=== PATIENT | female | born 1980 ===

== ENCOUNTER 2016-07-12 14:55 | Inpatient (IN) | payer OTHER ==
--- NOTE | 2016-07-12 15:30 | ED PDOC ---
HPI: SOB/CHF/COPD Time Seen by Provider: 07/12/16 15:27 Chief Complaint (Nursing): Shortness Of Breath Chief Complaint (Provider): shortness of breath History Per: Patient History/Exam Limitations: no limitations Additional Complaint(s): 35yo female comes the ED complaining of shortness of breath, fever, cough. Past Medical History Reviewed: Historical Data, Nursing Documentation, Vital Signs Vital Signs: Last Vital Signs Temp 99.0 F 07/12/16 15:20 Pulse 84 07/12/16 15:20 Resp 22 07/12/16 15:20 BP 103/54 L 07/12/16 15:20 Pulse Ox 100 07/12/16 15:35 - Medical History PMH: Anemia, Asthma, Gastritis, GERD, Migraine, Rheumatoid Arthritis Denies: Chronic Kidney Disease - Surgical History Surgical History: Cholecystectomy - Family History Family History: States: Unknown Family Hx - Living Arrangements Living Arrangements: With Family - Home Medications Home Medications: Ambulatory Orders Medication Instructions Recorded Albuterol Sulfate [Ventolin Hfa] 2 puff IH Q6H PRN 01/18/14 Mometasone/Formoterol [Dulera 100 1 puff IH BID 01/18/14 Mcg/5 Mcg Inhaler] Montelukast [Singulair] 10 mg PO HS 01/18/14 Albuterol/Ipratropium [Duoneb 3 3 ml IH QID PRN 11/07/14 mg/0.5 mg (3 ml) UD] Azelastine HCl [Astelin] 2 spray MANJIT DAILY 11/07/14 Dm Hydrobrom/Promethazine Hc 10 ml PO Q6H PRN 11/07/14 [Dextromethorphan W/Promethazine 15 mg/5 ml-6] Fluticasone Propionate [Flonase] 2 spray MANJIT DAILY 11/07/14 Gabapentin [Neurontin] 300 mg PO HS 11/07/14 Omeprazole 40 mg PO HS 11/07/14 SUMAtriptan succinate [Imitrex Tab] 100 mg PO PRN PRN 11/07/14 Topiramate [Topamax] 50 mg PO DAILY 11/07/14 Tramadol Hydrochloride [Tramadol] 25 mg PO TID 11/07/14 hydrOXYzine HCl [Atarax] 25 mg PO BID 11/07/14 hydrOXYzine HCl [Atarax] 50 mg PO HS 11/07/14 - Allergies Allergies/Adverse Reactions: Allergies Allergy/AdvReac Type Severity Reaction Status Date / Time Beef Containing Products Allergy ANGIOEDEMA Verified 07/12/16 15:15 fluconazole [From Diflucan] Allergy ITCHING Verified 07/12/16 15:15 hydromorphone HCl Allergy ITCHING Verified 07/12/16 15:15 [From Dilaudid] iron Allergy ANGIOEDEMA Verified 07/12/16 15:15 PORK Allergy ANAPHYLAXIS Verified 01/16/14 16:25 seafood Allergy ANAPHYLAXIS Uncoded 07/12/16 15:15 wine Allergy ANGIOEDEMA Uncoded 07/12/16 15:15 Review of Systems ROS Statement: Except As Marked, All Systems Reviewed And Found Negative Constitutional: Positive for: Fever Respiratory: Positive for: Cough, Shortness of Breath Physical Exam - Reviewed Nursing Documentation Reviewed: Yes Vital Signs Reviewed: Yes - Physical Exam Appears: Positive for: Well, Non-toxic, No Acute Distress Head Exam: Positive for: ATRAUMATIC, NORMAL INSPECTION, NORMOCEPHALIC Skin: Positive for: Normal Color, Warm, Dry Eye Exam: Positive for: EOMI, PERRL Cardiovascular/Chest: Positive for: Regular Rate, Rhythm Respiratory: Positive for: Rhonchi, Wheezing (expiratory). Negative for: Respiratory Distress Extremity: Positive for: Normal ROM Neurologic/Psych: Positive for: Alert, Oriented - Laboratory Results Result Diagrams: 07/12/16 16:00 07/12/16 16:00 - ECG O2 Sat by Pulse Oximetry: 100 Disposition - Clinical Impression Clinical Impression: Asthma, Bronchitis, Influenza, Failure of outpatient treatment - Patient ED Disposition Is Patient to be Admitted: Yes - Disposition Disposition Time: 18:10 Condition: FAIR - Pt Status Changed To: Hospital Disposition Of: Inpatient - Admit Certification Admit to Inpatient:: After my assessment, the patient will require hospitalization for at least two midnights. This is because of the severity of symptoms shown, intensity of services needed, and/or the medical risk in this patient being treated as an outpatient. - POA Present On Arrival: None Additional Comments - Additional Comments Additional Comments: Scribe Attestation: Documented by Markus Brooks acting as a scribe for Emiliano Galeana MD. Provider Scribe Attestation: All medical record entries made by the Scribe were at my direction and personally dictated by me. I have reviewed the chart and agree that the record accurately reflects my personal performance of the history, physical exam, medical decision making, and the department course for this patient. I have also personally directed, reviewed, and agree with the discharge instructions and disposition.
[2016-07-12] MEDS ORDERED: Azithromycin 500 MG in Sodium Chloride 0.9% 250 ML IVPB STA (15:31)
[2016-07-12] MEDS ORDERED: Albuterol-Ipratrop 3 mg / 0.5 (3 ml) UD IH STA (15:31)
[2016-07-12] MEDS ORDERED: cefTRIAXone (Rocephin) 1 gm Inj ONE (15:35)
[2016-07-12] MEDS ORDERED: Albuterol-Ipratrop 3 mg / 0.5 (3 ml) UD ONE (15:35)
[2016-07-12 17:06] LABS: BASO # 0.1 K/uL (0.0-0.2); BASO % 0.7 % (0.0-2.0); EOS % 0.5 % (0.0-4.0); HEMATOCRIT 32.8 % (34.0-47.0); LYMPH # 1.7 K/uL (1.0-4.3); LYMPH % 21.3 % (20.0-40.0); MEAN CORPUSCULAR HEMOGLOBIN 21.7 pg (27.0-31.0); MEAN CORPUSCULAR HGB CONC 31.4 g/dL (33.0-37.0); MEAN PLATELET VOLUME 6.8 fl (7.2-11.7); MONO # 0.9 K/uL (0.0-0.8); MONO % 11.2 % (0.0-10.0); NEUT # 5.4 K/uL (1.8-7.0); NEUT % 66.3 % (50.0-75.0); NRBC % 0.1 % (0.0-0.0); RED CELL DISTRIBUTION WIDTH 20.2 % (11.5-14.5); WHITE BLOOD COUNT 8.1 K/uL (4.8-10.8)
[2016-07-12 17:12] LABS: ALB/GLOB RATIO 1.2 (1.0-2.1); ALKALINE PHOSPHATASE 82 U/L (38-126); ALT/SGPT 32 U/L (9-52); AST/SGOT 30 U/L (14-36); BILIRUBIN,TOTAL 0.2 mg/dl (0.2-1.3); BLOOD UREA NITROGEN 10 mg/dl (7-17); CALCIUM 8.5 mg/dL (8.4-10.2); CARBON DIOXIDE 19 mmol/L (22-30); CHLORIDE 109 mmol/L (98-107); GFR AFRICAN-AMERICAN > 60; GLUCOSE,RANDOM 78 mg/dL (65-105); POTASSIUM 4.1 MMOL/L (3.6-5.0); SODIUM 139 mmol/l (132-148); TOTAL PROTEIN 7.5 G/DL (6.3-8.2)
[2016-07-12 17:13] LABS: VENOUS BLOOD GAS PCO2 51 mmHg (40-60); VENOUS BLOOD PH 7.27 (7.32-7.43)
[2016-07-12] MEDS ORDERED: Sodium Chloride 0.9% 1,000 ML IV STA (17:16)
--- NOTE | 2016-07-12 17:35 | RAD ---
HISTORY: cough COMPARISON: Chest x-ray performed 11/07/14 TECHNIQUE: Chest PA and lateral FINDINGS: Examination limited by habitus. LUNGS: No focal consolidation. Please note that chest x-ray has limited sensitivity for the detection of pulmonary masses. PLEURA: No significant pleural effusion identified. No definite pneumothorax . CARDIOVASCULAR: The cardiomediastinal silhouette appears within normal limits of size. OSSEOUS STRUCTURES: No acute osseous abnormality identified. VISUALIZED UPPER ABDOMEN: Unremarkable. OTHER FINDINGS: None. IMPRESSION: No focal consolidation, significant pleural effusion, or definite pneumothorax identified.
[2016-07-12 20:51] LABS: VENOUS BLOOD GAS BASE EXCESS -6.2 mmol/L (0.0-2.0); VENOUS BLOOD GAS PCO2 31 mmHg (40-60); VENOUS BLOOD PH 7.37 (7.32-7.43)
[2016-07-12] MEDS: Dextrose 5%/0.45% NS 1,000 ML IV SCH (22:37)
[2016-07-13] MEDS: methylPREDNISolone 60 MG in Sodium Chloride 0.9% 50 ML IV SCH ×3 (00:26→17:33)
[2016-07-13] MEDS: Promethazine/Cod 6.25mg-10mg/5ml Syr UD PO PRN ×3 (00:31→21:36)
[2016-07-13] MEDS: Albuterol-Ipratrop 3 mg / 0.5 (3 ml) UD INH SCH ×4 (01:00→19:55)
--- NOTE | 2016-07-13 07:16 | CARD ---
APPROVED REPORT EKG Measurement Heart [id number] <Conclusion> Normal sinus rhythm Normal ECG
[2016-07-13] MEDS ORDERED: cefTRIAXone 1,000 MG in Sterile Water for Inj 10 ML 25 ML IVPB SCH (09:00)
[2016-07-13] MEDS: Pantoprazole 40 mg EC Tab PO SCH (09:01)
[2016-07-13] MEDS: Dextrose 5%/0.45% NS 1,000 ML IV SCH (11:04)
--- NOTE | 2016-07-13 12:11 | HP ---
The patient is a 35-year-old female who was admitted via the Emergency Room because of progressively worsening shortness of breath and exercise intolerance for the past several weeks prior to presentati on. She was seen in the office originally, worked up and treated for acute exacerbation of asthma, b ut symptoms however worsened despite outpatient therapy. She was considered a treatment failure and sent to the Emergency Room for workup and therapy where she was admitted for acute asthma and the flu . PAST MEDICAL HISTORY: Remarkable for asthma, anxiety disorder, multiple allergies and urticaria. FAMILY HISTORY: Remarkable for mother who has hypertension and COPD with arthritis. SOCIAL HISTORY: Does not smoke, does not drink and lives at home with the mother. REVIEW OF SYSTEMS: Remarkable for recurrent shortness of breath, exercise intolerance and cough. PHYSICAL EXAMINATION: GENERAL: The patient is alert and oriented. VITAL SIGNS: Blood pressure 95/51, pulse of 95, respiratory rate 20. She is afebrile. O2 sat 96% o n room air. SKIN: Shows fair turgor. HEENT: Pupils equal, react to light and accommodation. Mouth shows mucus engorgement of pharynx. NECK: JVP flat. LUNGS: Poor aeration bilaterally with audible wheezing and rales. BREASTS: Normal. ABDOMEN: Soft, nontender, no organomegaly. EXTREMITIES: Shows no edema or cyanosis. RECTAL AND GENITALIA: Deferred. CENTRAL NERVOUS SYSTEM: Essentially unremarkable. LABORATORY DATA: WBC 8.1, hemoglobin 10.3, platelet count of 313,000. Sodium 139, potassium 4.1, BU N of 10, creatinine 0.7. Venous blood gas is remarkable for pH of 7.27, pO2 of 27, pCO2 of 51. Ches t x-ray shows no acute cardiopulmonary pathology. IMPRESSION: Acute asthma exacerbated by the flu, history of anxiety disorder, history of urticaria w ith multiple allergies. PLAN: Intravenous steroids, aerosolized bronchodilators, droplet precautions, Tamiflu given by mouth , IV antibiotics. Sputum will be sent for cultures. Blood cultures already ordered. Further therap y will depend on findings. Alessandro Whelan MD cc: 62 TT: 07/13/2016 12:10:18 sn
[2016-07-14] MEDS: methylPREDNISolone 60 MG in Sodium Chloride 0.9% 50 ML IV SCH ×3 (00:01→16:43)
[2016-07-14] MEDS: Albuterol-Ipratrop 3 mg / 0.5 (3 ml) UD INH SCH ×4 (01:12→19:28)
--- NOTE | 2016-07-14 08:33 | CP.PCM.PN ---
Subjective - Date & Time of Evaluation Date of Evaluation: 07/14/16 Time of Evaluation: 08:33 - Subjective Subjective: still coughing and wheezing has severe throat irritation and chest discomfort on coughing Objective - Vital Signs/Intake and Output Vital Signs (last 24 hours): Temp Pulse Resp BP Pulse Ox 98.1 F 71 18 111/75 99 07/14/16 07:55 07/14/16 07:55 07/14/16 07:55 07/14/16 07:55 07/14/16 07:55 - Medications Medications: Current Medications Acetaminophen (Tylenol 325mg Tab) 650 mg PO Q4 PRN PRN Reason: Fever >100.4 F Albuterol/Ipratropium (Duoneb 3 Mg/0.5 Mg (3 Ml) Ud) 3 ml INH RQ6 [facility] Last Admin: 07/14/16 07:33 Dose: 3 ml Gabapentin (Neurontin) 300 mg PO HS [facility] Last Admin: 07/13/16 21:37 Dose: 300 mg Hydroxyzine HCl (Atarax) 25 mg PO BID [facility] Last Admin: 07/13/16 16:16 Dose: 25 mg Hydroxyzine HCl (Atarax) 50 mg PO HS [facility] Last Admin: 07/13/16 21:37 Dose: 50 mg Methylprednisolone 60 mg/ (Sodium Chloride) 50 mls @ 100 mls/hr IV Q8 [facility] Last Admin: 07/14/16 00:01 Dose: 100 mls/hr Ceftriaxone Sodium 1 gm/ (Sodium Chloride) 100 mls @ 100 mls/hr IVPB DAILY [facility] Last Admin: 07/13/16 09:02 Dose: 100 mls/hr Montelukast Sodium (Singulair) 10 mg PO HS [facility] Last Admin: 07/13/16 21:37 Dose: 10 mg Oseltamivir Phosphate (Tamiflu Cap) 75 mg PO BID [facility] Last Admin: 07/13/16 16:16 Dose: 75 mg Pantoprazole Sodium (Protonix Ec Tab) 40 mg PO DAILY [facility] Last Admin: 07/13/16 09:01 Dose: 40 mg Promethazine HCl/Codeine (Phenergan/Codeine Oral Syrup) 5 ml PO Q6 PRN PRN Reason: Cough Last Admin: 07/13/16 21:36 Dose: 5 ml Topiramate (Topamax) 50 mg PO DAILY [facility] Last Admin: 07/13/16 08:28 Dose: 50 mg - Labs Labs: 07/12/16 16:00 07/12/16 16:00 - Constitutional Appears: In Acute Distress - Head Exam Head Exam: ATRAUMATIC, NORMAL INSPECTION, NORMOCEPHALIC - Eye Exam Eye Exam: EOMI, Normal appearance, PERRL Pupil Exam: NORMAL ACCOMODATION, PERRL - ENT Exam ENT Exam: Mucous Membranes Moist, Normal Exam - Neck Exam Neck Exam: Full ROM, Normal Inspection. absent: Lymphadenopathy - Respiratory Exam Respiratory Exam: Decreased Breath Sounds, Prolonged Expiratory Phase, Rales, Wheezes, NORMAL BREATHING PATTERN - Cardiovascular Exam Cardiovascular Exam: REGULAR RHYTHM, +S1, +S2. absent: Murmur - GI/Abdominal Exam GI & Abdominal Exam: Soft, Normal Bowel Sounds. absent: Tenderness - Rectal Exam Rectal Exam: NORMAL INSPECTION - Extremities Exam Extremities Exam: Full ROM, Normal Capillary Refill, Normal Inspection. absent : Joint Swelling, Pedal Edema - Back Exam Back Exam: NORMAL INSPECTION - Neurological Exam Neurological Exam: Alert, Awake, CN II-XII Intact, Normal Gait, Oriented x3 - Psychiatric Exam Psychiatric exam: Normal Affect, Normal Mood - Skin Skin Exam: Dry, Intact, Normal Color, Warm Assessment and Plan - Assessment and Plan (Free Text) Assessment: acute exac of asthma uri flu chronic anemia Plan: see orders
[2016-07-14] MEDS: Pantoprazole 40 mg EC Tab PO SCH (08:36)
[2016-07-14] MEDS: Promethazine/Cod 6.25mg-10mg/5ml Syr UD PO PRN (10:21)
[2016-07-14] MEDS: Mag&Al/Simet/Diphen/Lido 237 ML KIT PO SCH ×3 (10:30→16:17)
[2016-07-14] MEDS: Acetylcysteine 20% Inhal Soln (4ml) INH SCH (19:28)
[2016-07-15] MEDS: methylPREDNISolone 60 MG in Sodium Chloride 0.9% 50 ML IV SCH ×3 (00:14→17:32)
[2016-07-15] MEDS: Promethazine/Cod 6.25mg-10mg/5ml Syr UD PO PRN ×2 (00:15→18:01)
[2016-07-15] MEDS: Albuterol-Ipratrop 3 mg / 0.5 (3 ml) UD INH SCH ×4 (01:03→20:06)
[2016-07-15 07:17] LABS: BLOOD UREA NITROGEN 10 mg/dl (7-17); CALCIUM 9.3 mg/dL (8.4-10.2); CARBON DIOXIDE 21 mmol/L (22-30); CHLORIDE 110 mmol/L (98-107); GFR AFRICAN-AMERICAN > 60; GLUCOSE,RANDOM 120 mg/dL (65-105); POTASSIUM 4.7 MMOL/L (3.6-5.0); SODIUM 140 mmol/l (132-148)
[2016-07-15] MEDS: Acetylcysteine 20% Inhal Soln (4ml) INH SCH ×2 (07:44→20:06)
[2016-07-15 07:53] LABS: BASO % 0.1 % (0.0-2.0); HEMATOCRIT 33.6 % (34.0-47.0); LYMPH # 1.6 K/uL (1.0-4.3); LYMPH % 7.7 % (20.0-40.0); MEAN CELL VOLUME 68.4 fl (81.0-99.0); MEAN CORPUSCULAR HEMOGLOBIN 21.2 pg (27.0-31.0); MEAN CORPUSCULAR HGB CONC 30.9 g/dL (33.0-37.0); MEAN PLATELET VOLUME 7.4 fl (7.2-11.7); MONO # 0.7 K/uL (0.0-0.8); MONO % 3.6 % (0.0-10.0); NEUT # 18.2 K/uL (1.8-7.0); NEUT % 88.6 % (50.0-75.0); PLATELET COUNT 386 K/uL (130-400); RED CELL DISTRIBUTION WIDTH 20.2 % (11.5-14.5); WHITE BLOOD COUNT 20.6 K/uL (4.8-10.8)
[2016-07-15 08:56] LABS: NEUTROPHIL 88 % (42-75); TOTAL CELLS COUNTED 100
[2016-07-15] MEDS: Mag&Al/Simet/Diphen/Lido 237 ML KIT PO SCH ×3 (08:58→17:33)
[2016-07-15] MEDS: Pantoprazole 40 mg EC Tab PO SCH (08:59)
[2016-07-15 09:00] LABS: LARGE PLATELETS PRESENT
--- NOTE | 2016-07-15 09:25 | CP.PCM.PN ---
Subjective - Date & Time of Evaluation Date of Evaluation: 07/15/16 Time of Evaluation: 09:25 - Subjective Subjective: STILL COUGHING AND DYSPNEIC AT REST Objective - Vital Signs/Intake and Output Vital Signs (last 24 hours): Temp Pulse Resp BP Pulse Ox 99.1 F 75 20 117/76 97 07/15/16 08:22 07/15/16 08:22 07/15/16 08:22 07/15/16 08:22 07/15/16 08:22 - Medications Medications: Current Medications Acetaminophen (Tylenol 325mg Tab) 650 mg PO Q4 PRN PRN Reason: Fever >100.4 F Acetylcysteine (Acetylcysteine 20%) 2 ml INH RBID [facility] Last Admin: 07/15/16 07:44 Dose: 2 ml Albuterol/Ipratropium (Duoneb 3 Mg/0.5 Mg (3 Ml) Ud) 3 ml INH RQ6 [facility] Last Admin: 07/15/16 07:44 Dose: 3 ml Gabapentin (Neurontin) 300 mg PO HS [facility] Last Admin: 07/15/16 00:15 Dose: 300 mg Hydroxyzine HCl (Atarax) 25 mg PO BID [facility] Last Admin: 07/15/16 08:59 Dose: 25 mg Hydroxyzine HCl (Atarax) 50 mg PO HS [facility] Last Admin: 07/15/16 00:15 Dose: 50 mg Methylprednisolone 60 mg/ (Sodium Chloride) 50 mls @ 100 mls/hr IV Q8 [facility] Last Admin: 07/15/16 00:14 Dose: 100 mls/hr Ceftriaxone Sodium 1 gm/ (Sodium Chloride) 100 mls @ 100 mls/hr IVPB DAILY [facility] Last Admin: 07/15/16 08:59 Dose: 100 mls/hr Montelukast Sodium (Singulair) 10 mg PO HS [facility] Last Admin: 07/15/16 00:15 Dose: 10 mg Oseltamivir Phosphate (Tamiflu Cap) 75 mg PO BID [facility] Last Admin: 07/15/16 08:59 Dose: 75 mg Pantoprazole Sodium (Protonix Ec Tab) 40 mg PO DAILY [facility] Last Admin: 07/15/16 08:59 Dose: 40 mg Promethazine HCl/Codeine (Phenergan/Codeine Oral Syrup) 5 ml PO Q6 PRN PRN Reason: Cough Last Admin: 07/15/16 00:15 Dose: 5 ml Saliva Substitute (First Magic Mouthwash) 10 ml PO TID [facility] Last Admin: 07/15/16 08:58 Dose: 10 ml Topiramate (Topamax) 50 mg PO DAILY [facility] Last Admin: 07/15/16 08:59 Dose: 50 mg - Labs Labs: 07/15/16 06:15 07/15/16 06:15 - Constitutional Appears: In Acute Distress - Head Exam Head Exam: ATRAUMATIC, NORMAL INSPECTION, NORMOCEPHALIC - Eye Exam Eye Exam: EOMI, Normal appearance, PERRL Pupil Exam: NORMAL ACCOMODATION, PERRL - ENT Exam ENT Exam: Mucous Membranes Moist, Normal Exam - Neck Exam Neck Exam: Full ROM, Normal Inspection. absent: Lymphadenopathy - Respiratory Exam Respiratory Exam: Decreased Breath Sounds, Prolonged Expiratory Phase, Rales, Wheezes, NORMAL BREATHING PATTERN - Cardiovascular Exam Cardiovascular Exam: REGULAR RHYTHM, +S1, +S2. absent: Murmur - GI/Abdominal Exam GI & Abdominal Exam: Soft, Normal Bowel Sounds. absent: Tenderness - Rectal Exam Rectal Exam: NORMAL INSPECTION - Extremities Exam Extremities Exam: Full ROM, Normal Capillary Refill, Normal Inspection. absent : Joint Swelling, Pedal Edema - Back Exam Back Exam: NORMAL INSPECTION - Neurological Exam Neurological Exam: Alert, Awake, CN II-XII Intact, Normal Gait, Oriented x3 - Psychiatric Exam Psychiatric exam: Normal Affect, Normal Mood - Skin Skin Exam: Dry, Intact, Normal Color, Warm Assessment and Plan - Assessment and Plan (Free Text) Assessment: ACUTE EXAC OF ASTHMA FLU Plan: CONTINUE PRESENT RX
[2016-07-16] MEDS: Albuterol-Ipratrop 3 mg / 0.5 (3 ml) UD INH SCH ×4 (01:01→20:41)
[2016-07-16] MEDS: methylPREDNISolone 60 MG in Sodium Chloride 0.9% 50 ML IV SCH ×2 (02:00→10:01)
[2016-07-16] MEDS: Acetylcysteine 20% Inhal Soln (4ml) INH SCH ×2 (07:19→20:41)
[2016-07-16] MEDS: Pantoprazole 40 mg EC Tab PO SCH (09:58)
[2016-07-16] MEDS: Mag&Al/Simet/Diphen/Lido 237 ML KIT PO SCH ×3 (09:58→16:57)
--- NOTE | 2016-07-16 14:16 | CP.PCM.PN ---
Subjective - Date & Time of Evaluation Date of Evaluation: 07/16/16 Time of Evaluation: 14:16 - Subjective Subjective: SLIGHT IMPROVEMENT OF COUGH AND SOB Objective - Vital Signs/Intake and Output Vital Signs (last 24 hours): Temp Pulse Resp BP Pulse Ox 98 F 92 H 20 120/73 98 07/16/16 03:38 07/15/16 21:50 07/15/16 21:50 07/15/16 21:50 07/15/16 21:50 - Medications Medications: Current Medications Acetaminophen (Tylenol 325mg Tab) 650 mg PO Q4 PRN PRN Reason: Fever >100.4 F Acetylcysteine (Acetylcysteine 20%) 2 ml INH RBID [facility] Last Admin: 07/16/16 07:19 Dose: 2 ml Albuterol/Ipratropium (Duoneb 3 Mg/0.5 Mg (3 Ml) Ud) 3 ml INH RQ6 [facility] Last Admin: 07/16/16 13:12 Dose: 3 ml Gabapentin (Neurontin) 300 mg PO HS [facility] Last Admin: 07/15/16 22:18 Dose: 300 mg Hydroxyzine HCl (Atarax) 25 mg PO BID [facility] Last Admin: 07/15/16 17:33 Dose: 25 mg Hydroxyzine HCl (Atarax) 50 mg PO HS [facility] Last Admin: 07/15/16 22:18 Dose: 50 mg Methylprednisolone 60 mg/ (Sodium Chloride) 50 mls @ 100 mls/hr IV Q8 [facility] Last Admin: 07/16/16 10:01 Dose: 100 mls/hr Ceftriaxone Sodium 1 gm/ (Sodium Chloride) 100 mls @ 100 mls/hr IVPB DAILY [facility] Last Admin: 07/16/16 09:59 Dose: 100 mls/hr Montelukast Sodium (Singulair) 10 mg PO HS [facility] Last Admin: 07/15/16 22:18 Dose: 10 mg Oseltamivir Phosphate (Tamiflu Cap) 75 mg PO BID [facility] Last Admin: 07/16/16 10:01 Dose: 75 mg Pantoprazole Sodium (Protonix Ec Tab) 40 mg PO DAILY [facility] Last Admin: 07/16/16 09:58 Dose: 40 mg Promethazine HCl/Codeine (Phenergan/Codeine Oral Syrup) 5 ml PO Q6 PRN PRN Reason: Cough Last Admin: 07/15/16 18:01 Dose: 5 ml Saliva Substitute (First Magic Mouthwash) 10 ml PO TID [facility] Last Admin: 07/16/16 09:58 Dose: 10 ml Topiramate (Topamax) 50 mg PO DAILY [facility] Last Admin: 07/16/16 10:02 Dose: 50 mg - Labs Labs: 07/15/16 06:15 07/15/16 06:15 - Constitutional Appears: No Acute Distress - Head Exam Head Exam: ATRAUMATIC, NORMAL INSPECTION, NORMOCEPHALIC - Eye Exam Eye Exam: EOMI, Normal appearance, PERRL Pupil Exam: NORMAL ACCOMODATION, PERRL - ENT Exam ENT Exam: Mucous Membranes Moist, Normal Exam - Neck Exam Neck Exam: Full ROM, Normal Inspection. absent: Lymphadenopathy - Respiratory Exam Respiratory Exam: Decreased Breath Sounds, Rales, Wheezes, NORMAL BREATHING PATTERN - Cardiovascular Exam Cardiovascular Exam: REGULAR RHYTHM, +S1, +S2. absent: Murmur - GI/Abdominal Exam GI & Abdominal Exam: Soft, Normal Bowel Sounds. absent: Tenderness - Rectal Exam Rectal Exam: NORMAL INSPECTION - Extremities Exam Extremities Exam: Full ROM, Normal Capillary Refill, Normal Inspection. absent : Joint Swelling, Pedal Edema - Back Exam Back Exam: NORMAL INSPECTION - Neurological Exam Neurological Exam: Alert, Awake, CN II-XII Intact, Normal Gait, Oriented x3 - Psychiatric Exam Psychiatric exam: Normal Affect, Normal Mood - Skin Skin Exam: Dry, Intact, Normal Color, Warm Assessment and Plan - Assessment and Plan (Free Text) Assessment: ACUTE ASTHMA URI FLU Plan: TAPER STEROIDS D/C IN AM IF STABLE
[2016-07-16] MEDS: Promethazine/Cod 6.25mg-10mg/5ml Syr UD PO PRN (21:59)
[2016-07-16] MEDS: methylPREDNISolone 40 MG in Sodium Chloride 0.9% 50 ML IV SCH (22:34)
[2016-07-17] MEDS: Albuterol-Ipratrop 3 mg / 0.5 (3 ml) UD INH SCH ×2 (01:06→07:20)
[2016-07-17] MEDS: Acetylcysteine 20% Inhal Soln (4ml) INH SCH (07:21)
[2016-07-17 08:40] VITALS: BP 103/68; PULSE 78; RESP 20; TEMP 98.7; O2SAT 97
--- NOTE | 2016-07-17 08:48 | CP.PCM.DIS ---
Provider - Provider Date of Admission: 07/12/16 15:32 Attending physician: Alessandro Whelan MD Primary care physician: Alessandro Whelan MD Time Spent in preparation of Discharge (in minutes): 30 Diagnosis - Discharge Diagnosis (1) Asthma Status: Acute (2) Failure of outpatient treatment Status: Acute (3) Influenza Status: Acute (4) Asthma exacerbation Status: Acute Hospital Course - Lab Results Lab Results: Micro Results 07/12/16 16:00 Blood Blood Culture - Preliminary NO GROWTH AFTER 4 DAYS 07/13/16 09:48 Sputum Gram Stain - Final 07/13/16 09:48 Sputum Sputum Culture - Final NORMAL ORAL RAFAEL Most Recent Lab Values WBC 20.6 K/uL (4.8-10.8) H D 07/15/16 06:15 RBC 4.91 Mil/uL (3.80-5.20) 07/15/16 06:15 Hgb 10.4 g/dL (12.0-16.0) L 07/15/16 06:15 Hct 33.6 % (34.0-47.0) L 07/15/16 06:15 MCV 68.4 fl (81.0-99.0) L 07/15/16 06:15 MCH 21.2 pg (27.0-31.0) L 07/15/16 06:15 MCHC 30.9 g/dL (33.0-37.0) L 07/15/16 06:15 RDW 20.2 % (11.5-14.5) H 07/15/16 06:15 Plt Count 386 K/uL (130-400) 07/15/16 06:15 MPV 7.4 fl (7.2-11.7) 07/15/16 06:15 Neut % (Auto) 88.6 % (50.0-75.0) H 07/15/16 06:15 Lymph % (Auto) 7.7 % (20.0-40.0) L 07/15/16 06:15 [place] % (Auto) 3.6 % (0.0-10.0) 07/15/16 06:15 Eos % (Auto) 0.0 % (0.0-4.0) 07/15/16 06:15 Baso % (Auto) 0.1 % (0.0-2.0) 07/15/16 06:15 Neut # 18.2 K/uL (1.8-7.0) H 07/15/16 06:15 Lymph # 1.6 K/uL (1.0-4.3) 07/15/16 06:15 [place] # 0.7 K/uL (0.0-0.8) 07/15/16 06:15 Eos # 0.0 K/uL (0.0-0.7) 07/15/16 06:15 Baso # 0.0 K/uL (0.0-0.2) 07/15/16 06:15 Neutrophils % (Manual) 88 % (42-75) H 07/15/16 06:15 Band Neutrophils % 1 % (0-2) 07/15/16 06:15 Lymphocytes % (Manual) 10 % (20-50) L 07/15/16 06:15 Monocytes % (Manual) 1 % (0-10) 07/15/16 06:15 Toxic Granulation Present 07/15/16 06:15 Platelet Estimate Normal (NORMAL) 07/15/16 06:15 Large Platelets Present 07/15/16 06:15 Hypochromasia (manual) Slight 07/15/16 06:15 Poikilocytosis (manual Slight 07/15/16 06:15 Anisocytosis (manual) Moderate 07/15/16 06:15 Microcytosis (manual) Moderate 07/15/16 06:15 Ovalocytes Slight 07/15/16 06:15 pO2 65 mm/Hg (30-55) H 07/12/16 20:45 VBG pH 7.37 (7.32-7.43) 07/12/16 20:45 VBG pCO2 31 mmHg (40-60) L 07/12/16 20:45 VBG HCO3 19.9 mmol/L 07/12/16 20:45 VBG Total CO2 18.9 mmol/L (22-28) L 07/12/16 20:45 VBG O2 Sat (Calc) 96.8 % (40-65) H 07/12/16 20:45 VBG Base Excess -6.2 mmol/L (0.0-2.0) L 07/12/16 20:45 VBG Potassium 4.0 mmol/L (3.6-5.2) 07/12/16 20:45 Sodium 140.0 mmol/L (132-148) 07/12/16 20:45 Chloride 117.0 mmol/L (98-107) H 07/12/16 20:45 Glucose 141 mg/dL (65-105) H 07/12/16 20:45 Lactate 1.1 mmol/L (0.7-2.1) 07/12/16 20:45 FiO2 21.0 % 07/12/16 20:45 Sodium 140 mmol/l (132-148) 07/15/16 06:15 Potassium 4.7 MMOL/L (3.6-5.0) 07/15/16 06:15 Chloride 110 mmol/L (98-107) H 07/15/16 06:15 Carbon Dioxide 21 mmol/L (22-30) L 07/15/16 06:15 Anion Gap 14 (10-20) 07/15/16 06:15 BUN 10 mg/dl (7-17) 07/15/16 06:15 Creatinine 0.7 mg/dL (0.7-1.2) 07/15/16 06:15 Est GFR ( Amer) > 60 07/15/16 06:15 Est GFR (Non-Af Amer) > 60 07/15/16 06:15 Random Glucose 120 mg/dL (65-105) H 07/15/16 06:15 Calcium 9.3 mg/dL (8.4-10.2) 07/15/16 06:15 Total Bilirubin 0.2 mg/dl (0.2-1.3) 07/12/16 16:00 AST 30 U/L (14-36) 07/12/16 16:00 ALT 32 U/L (9-52) 07/12/16 16:00 Alkaline Phosphatase 82 U/L (38-126) 07/12/16 16:00 Total Protein 7.5 G/DL (6.3-8.2) 07/12/16 16:00 Albumin 4.0 g/dL (3.5-5.0) 07/12/16 16:00 Globulin 3.4 gm/dL (2.2-3.9) 07/12/16 16:00 Albumin/Globulin Ratio 1.2 (1.0-2.1) 07/12/16 16:00 Venous Blood Potassium 4.0 mmol/L (3.6-5.2) 07/12/16 20:45 Influenza Typ A,B (EIA) Pos for influenza b (NEGATIVE) H 07/12/16 17:30 - Hospital Course Hospital Course: cough less no chest pains Discharge Exam - Head Exam Head Exam: ATRAUMATIC, NORMAL INSPECTION, NORMOCEPHALIC - Eye Exam Eye Exam: EOMI, Normal appearance, PERRL Pupil Exam: NORMAL ACCOMODATION, PERRL - Respiratory Exam Respiratory Exam: Wheezes Additional comments: mild wheezing - GI/Abdominal Exam GI & Abdominal Exam: Normal Bowel Sounds - Rectal Exam Rectal Exam: NORMAL INSPECTION - Neurological Exam Neurological exam: Alert, CN II-XII Intact, Normal Gait, Oriented x3, Reflexes Normal - Psychiatric Exam Psychiatric exam: Normal Affect, Normal Mood - Skin Skin Exam: Dry, Intact, Normal Color, Warm Discharge Plan - Follow Up Plan Condition: FAIR Disposition: HOME/ ROUTINE Patient education suggested?: Yes Additional Instructions: d/c home today Referrals: Alessandro Whelan MD [Primary Care Provider] -
[2016-07-17] MEDS: Mag&Al/Simet/Diphen/Lido 237 ML KIT PO SCH (09:09)
[2016-07-17] MEDS: Pantoprazole 40 mg EC Tab PO SCH (09:09)
[2016-07-17] MEDS: methylPREDNISolone 40 MG in Sodium Chloride 0.9% 50 ML IV SCH (09:10)
== END 2016-07-17 11:50 | disposition home or self-care (01) | DRG 68 ==
LOC: H.ER 14:55 → H.ERHOLD 15:32 → H.MEDSURG1 20:34
PROVIDERS: ADMIT Internal Medicine Pulmonary Disease; ATTEND Internal Medicine Pulmonary Disease
PROC: 3E0F7GC Introduction of Other Therapeutic Substance into Respiratory Tract, Via Natural or Artificial Opening (ICD-10-PCS; principal; 2016-07-13)
DX: J10.1 Influenza due to other identified influenza virus with other respiratory manifestations (principal); J45.901 Unspecified asthma with (acute) exacerbation; D64.9 Anemia, unspecified; F41.9 Anxiety disorder, unspecified; Z91.048 Other nonmedicinal substance allergy status; Z88.8 Allergy status to other drugs, medicaments and biological substances

== ENCOUNTER 2016-09-04 00:47 | Emergency (ER) | payer OTHER ==
[2016-09-04 01:14] VITALS: BP 153/73; PULSE 89; RESP 16; TEMP 97.9; O2SAT 100
--- NOTE | 2016-09-04 03:20 | ED PDOC ---
Lower Extremity Pain/Injury Time Seen by Provider: 09/04/16 01:07 Chief Complaint (Nursing): Lower Extremity Problem/Injury Chief Complaint (Provider): Left ankle pain History Per: Patient History/Exam Limitations: no limitations Onset/Duration Of Symptoms: Hrs Current Symptoms Are (Timing): Still Present Severity: Moderate Pain Scale Rating Of: 6 Additional Complaint(s): Pt states twice during the day she twisted her ankle. Pt states after she was able to walk after but had worsening pain when she got home. Pt states she noticed swelling so she iced the area. PT states the pain is worse and now she cannot put pressure on ankle to walk. Past Medical History Reviewed: Historical Data, Nursing Documentation, Vital Signs Vital Signs: Last Vital Signs Temp 97.9 F 09/04/16 01:09 Pulse 89 09/04/16 01:09 Resp 16 09/04/16 01:09 BP 153/73 H 09/04/16 01:09 Pulse Ox 100 09/04/16 01:09 - Medical History PMH: Anemia, Asthma, Gastritis, GERD, Migraine, Rheumatoid Arthritis Denies: Chronic Kidney Disease - Surgical History Surgical History: Cholecystectomy (2008) - Family History Family History: States: Unknown Family Hx - Living Arrangements Living Arrangements: With Family - Social History Current smoker - smoking cessation education provided: No - Home Medications Home Medications: Ambulatory Orders Medication Instructions Recorded Albuterol Sulfate [Ventolin Hfa] 2 puff IH Q6H PRN 01/18/14 Mometasone/Formoterol [Dulera 100 1 puff IH BID 01/18/14 Mcg/5 Mcg Inhaler] Montelukast [Singulair] 10 mg PO HS 01/18/14 Albuterol/Ipratropium [Duoneb 3 3 ml IH QID PRN 11/07/14 mg/0.5 mg (3 ml) UD] Dm Hydrobrom/Promethazine Hc 10 ml PO Q6H PRN 11/07/14 [Dextromethorphan W/Promethazine 15 mg/5 ml-6] Fluticasone Propionate [Flonase] 2 spray MANJIT DAILY 11/07/14 Gabapentin [Neurontin] 300 mg PO HS 11/07/14 Omeprazole 40 mg PO HS 11/07/14 SUMAtriptan succinate [Imitrex Tab] 100 mg PO PRN PRN 11/07/14 Topiramate [Topamax] 50 mg PO DAILY 11/07/14 Tramadol Hydrochloride [Tramadol] 25 mg PO TID 11/07/14 hydrOXYzine HCl [Atarax] 25 mg PO BID 11/07/14 hydrOXYzine HCl [Atarax] 50 mg PO HS 11/07/14 levoFLOXacin [Levaquin] 500 mg PO DAILY #7 tab 07/17/16 traMADol [Ultram] 50 mg PO Q6H PRN #10 tab 09/04/16 - Allergies Allergies/Adverse Reactions: Allergies Allergy/AdvReac Type Severity Reaction Status Date / Time Beef Containing Products Allergy ANGIOEDEMA Verified 07/12/16 15:15 fluconazole [From Diflucan] Allergy ITCHING Verified 07/12/16 15:15 hydromorphone HCl Allergy ITCHING Verified 07/12/16 15:15 [From Dilaudid] iron Allergy ANGIOEDEMA Verified 07/12/16 15:15 PORK Allergy ANAPHYLAXIS Verified 01/16/14 16:25 seafood Allergy ANAPHYLAXIS Uncoded 07/12/16 15:15 wine Allergy ANGIOEDEMA Uncoded 07/12/16 15:15 - ECG O2 Sat by Pulse Oximetry: 100 Medical Decision Making Medical Decision Making: x-ray without fracture, reviewed by Dr. Mcneal podiatry resident. Disposition - Clinical Impression Clinical Impression: Ankle sprain - Patient ED Disposition Is Patient to be Admitted: No Counseled Patient/Family Regarding: Diagnosis, Need For Followup, Rx Given - Disposition Referrals: [facility] [Outside] [facility] [Outside] Disposition: Routine/Home Disposition Time: 04:03 Condition: GOOD Prescriptions: traMADol [Ultram] 50 mg PO Q6H PRN #10 tab PRN Reason: Pain Instructions: Ankle Sprain (ED)
--- NOTE | 2016-09-04 11:04 | RAD ---
HISTORY: pain, twisted ankle twice COMPARISON: No prior FINDINGS: BONES: Normal. No fracture. JOINTS: Normal. No osteoarthritis. SOFT TISSUE: Normal. OTHER FINDINGS: None . IMPRESSION: Normal Bone Xray.
== END 2016-09-04 04:42 | disposition home or self-care (01) ==
LOC: H.ER 00:47
DX: S93.402A Sprain of unspecified ligament of left ankle, initial encounter (principal); X50.9XXA Other and unspecified overexertion or strenuous movements or postures, initial encounter; Y92.89 Other specified places as the place of occurrence of the external cause; J45.909 Unspecified asthma, uncomplicated; K21.9 Gastro-esophageal reflux disease without esophagitis; M06.9 Rheumatoid arthritis, unspecified

== ENCOUNTER 2016-10-04 12:47 | Emergency (ER) | payer OTHER ==
[2016-10-04 12:59] VITALS: BP 119/79; PULSE 74; RESP 19; TEMP 97.8; O2SAT 100
--- NOTE | 2016-10-04 13:03 | ED PDOC ---
HPI: Allergic Reaction Time Seen by Provider: 10/04/16 12:56 Chief Complaint (Nursing): Allergic Reaction Chief Complaint (Provider): Rash, Itching History Per: Patient Additional Complaint(s): Pt is a 36 yo female presents to ED with complaints of diffuse itching, all over her body x 2 weeks. but no rashes or redness on the skin noted.pt took Benadryl w/o relief. Pt can not identify any triggering factors. Past Medical History Reviewed: Nursing Documentation, Vital Signs Vital Signs: Last Vital Signs Temp 97.8 F 10/04/16 12:54 Pulse 74 10/04/16 12:54 Resp 19 10/04/16 12:54 BP 119/79 10/04/16 12:54 Pulse Ox 100 10/04/16 12:54 - Medical History PMH: Anemia, Asthma, Gastritis, GERD, Migraine, Rheumatoid Arthritis Denies: Chronic Kidney Disease - Surgical History Surgical History: Cholecystectomy (2008) - Family History Family History: States: Unknown Family Hx - Living Arrangements Living Arrangements: With Family - Social History Current smoker - smoking cessation education provided: No Alcohol: None Drugs: Denies - Home Medications Home Medications: Ambulatory Orders Medication Instructions Recorded Albuterol Sulfate [Ventolin Hfa] 2 puff IH Q6H PRN 01/18/14 Mometasone/Formoterol [Dulera 100 1 puff IH BID 01/18/14 Mcg/5 Mcg Inhaler] Montelukast [Singulair] 10 mg PO HS 01/18/14 Albuterol/Ipratropium [Duoneb 3 3 ml IH QID PRN 11/07/14 mg/0.5 mg (3 ml) UD] Dm Hydrobrom/Promethazine Hc 10 ml PO Q6H PRN 11/07/14 [Dextromethorphan W/Promethazine 15 mg/5 ml-6] Fluticasone Propionate [Flonase] 2 spray MANJIT DAILY 11/07/14 Gabapentin [Neurontin] 300 mg PO HS 11/07/14 Omeprazole 40 mg PO HS 11/07/14 SUMAtriptan succinate [Imitrex Tab] 100 mg PO PRN PRN 11/07/14 Topiramate [Topamax] 50 mg PO DAILY 11/07/14 Tramadol Hydrochloride [Tramadol] 25 mg PO TID 11/07/14 hydrOXYzine HCl [Atarax] 25 mg PO BID 11/07/14 hydrOXYzine HCl [Atarax] 50 mg PO HS 11/07/14 levoFLOXacin [Levaquin] 500 mg PO DAILY #7 tab 07/17/16 traMADol [Ultram] 50 mg PO Q6H PRN #10 tab 09/04/16 Methylprednisolone [Medrol Dose 4 mg PO DAILY #21 mg 10/04/16 Pack (21 tabs)] - Allergies Allergies/Adverse Reactions: Allergies Allergy/AdvReac Type Severity Reaction Status Date / Time Beef Containing Products Allergy ANGIOEDEMA Verified 07/12/16 15:15 fluconazole [From Diflucan] Allergy ITCHING Verified 07/12/16 15:15 hydromorphone HCl Allergy ITCHING Verified 07/12/16 15:15 [From Dilaudid] iron Allergy ANGIOEDEMA Verified 07/12/16 15:15 PORK Allergy ANAPHYLAXIS Verified 01/16/14 16:25 seafood Allergy ANAPHYLAXIS Uncoded 07/12/16 15:15 wine Allergy ANGIOEDEMA Uncoded 07/12/16 15:15 Review of Systems ROS Statement: Except As Marked, All Systems Reviewed And Found Negative Skin: Positive for: Other (itching) Physical Exam - Reviewed Nursing Documentation Reviewed: Yes Vital Signs Reviewed: Yes - Physical Exam Appears: Positive for: Well, Non-toxic, No Acute Distress Head Exam: Positive for: ATRAUMATIC, NORMAL INSPECTION, NORMOCEPHALIC Skin: Positive for: Normal Color, Warm. Negative for: Rash Eye Exam: Positive for: EOMI, Normal appearance, PERRL ENT: Positive for: Normal ENT Inspection Neck: Positive for: Normal, Painless ROM Cardiovascular/Chest: Positive for: Regular Rate, Rhythm Respiratory: Positive for: CNT, Normal Breath Sounds Gastrointestinal/Abdominal: Positive for: Normal Exam, Bowel Sounds, Soft Back: Positive for: Normal Inspection Extremity: Positive for: Normal ROM Neurologic/Psych: Positive for: Alert, Oriented - Laboratory Results Result Diagrams: 10/04/16 13:20 10/04/16 13:20 - ECG O2 Sat by Pulse Oximetry: 100 Interpretation Of Abnormal: medicated with Benadryl and Solumdedrol Pt reports feeling improved on re-eval Disposition - Clinical Impression Clinical Impression: Chronic pruritus - Patient ED Disposition Is Patient to be Admitted: No - Disposition Disposition: Routine/Home Disposition Time: 15:21 Condition: STABLE Prescriptions: Methylprednisolone [Medrol Dose Pack (21 tabs)] 4 mg PO DAILY #21 mg Instructions: Itchy Skin (ED) Forms: [employer] (Mongolian)
[2016-10-04 13:37] LABS: BASO # 0.1 K/uL (0.0-0.2); BASO % 1.1 % (0.0-2.0); EOS # 0.2 K/uL (0.0-0.7); EOS % 1.4 % (0.0-4.0); LYMPH # 3.8 K/uL (1.0-4.3); LYMPH % 33.2 % (20.0-40.0); MEAN CELL VOLUME 65.7 fl (81.0-99.0); MEAN CORPUSCULAR HEMOGLOBIN 20.6 pg (27.0-31.0); MEAN CORPUSCULAR HGB CONC 31.4 g/dL (33.0-37.0); MEAN PLATELET VOLUME 6.8 fl (7.2-11.7); MONO # 0.7 K/uL (0.0-0.8); MONO % 5.8 % (0.0-10.0); NEUT # 6.6 K/uL (1.8-7.0); NEUT % 58.5 % (50.0-75.0); NRBC % 0.1 % (0.0-0.0); RED CELL DISTRIBUTION WIDTH 20.4 % (11.5-14.5); WHITE BLOOD COUNT 11.3 K/uL (4.8-10.8)
[2016-10-04 13:53] LABS: ALB/GLOB RATIO 1.4 (1.0-2.1); ALKALINE PHOSPHATASE 80 U/L (38-126); ALT/SGPT 28 U/L (9-52); AST/SGOT 22 U/L (14-36); BILIRUBIN,TOTAL 0.2 mg/dl (0.2-1.3); BLOOD UREA NITROGEN 11 mg/dl (7-17); CARBON DIOXIDE 18 mmol/L (22-30); CHLORIDE 111 mmol/L (98-107); GFR AFRICAN-AMERICAN > 60; GLUCOSE,RANDOM 77 mg/dL (65-105); SODIUM 141 mmol/l (132-148); TOTAL PROTEIN 7.9 G/DL (6.3-8.2)
[2016-10-04 13:54] LABS: POTASSIUM 3.4 MMOL/L (3.6-5.0)
[2016-10-04] MEDS ORDERED: Potassium Chloride 20 mEq ER Tab PO ONE ×2 (14:39→14:42)
== END 2016-10-04 15:31 | disposition home or self-care (01) ==
LOC: H.ER 12:47
DX: L29.9 Pruritus, unspecified (principal)

== ENCOUNTER 2017-01-06 16:06 | Emergency (ER) | payer OTHER ==
[2017-01-06 16:16] VITALS: BMI 33.2
[2017-01-06 16:18] VITALS: O2SAT 98
[2017-01-06] MEDS ORDERED: DiphenhydrAMINE 50 mg/ml Inj IVP STA (16:23)
--- NOTE | 2017-01-06 16:57 | ED PDOC ---
HPI: Allergic Reaction Time Seen by Provider: 01/06/17 16:18 Chief Complaint (Nursing): Allergic Reaction Chief Complaint (Provider): Allergic Reaction History Per: Patient History/Exam Limitations: no limitations Onset/Duration Of Symptoms: Hrs (x1) Current Symptoms Are (Timing): Still Present Additional Complaint(s): Carmen Benavidez is a 36 year old female with a history of asthma, severe allergies, and anaphylactic shock that presents to the ED with a chief complaint of sudden onset itchiness to her throat and lips with associated chest tightness and wheezing that began around 3:30 PM today. Patient states that she may have eaten a piece of a peanut, which she is allergic to. She reports that she used her Albuterol inhaler and took Benadryl 25 mg prior to arrival, but still feels the symptoms, and has since developed lightheadedness and nausea. She denies any vomiting or rash. PMD: Dr. Burgess Past Medical History Reviewed: Historical Data, Nursing Documentation, Vital Signs Vital Signs: Last Vital Signs Temp 98.4 F 01/06/17 16:12 Pulse 95 H 01/06/17 16:12 Resp 18 01/06/17 16:12 BP 151/98 H 01/06/17 16:12 Pulse Ox 98 01/06/17 16:16 - Medical History PMH: Anemia, Asthma, Gastritis, GERD, Migraine, Rheumatoid Arthritis Denies: Chronic Kidney Disease - Surgical History Surgical History: Cholecystectomy (2008) - Family History Family History: States: Unknown Family Hx - Social History Current smoker - smoking cessation education provided: No Alcohol: None - Home Medications Home Medications: Ambulatory Orders Medication Instructions Recorded Albuterol Sulfate [Ventolin Hfa] 2 puff IH Q6H PRN 01/18/14 Mometasone/Formoterol [Dulera 100 1 puff IH BID 01/18/14 Mcg/5 Mcg Inhaler] Montelukast [Singulair] 10 mg PO HS 01/18/14 Albuterol/Ipratropium [Duoneb 3 3 ml IH QID PRN 11/07/14 mg/0.5 mg (3 ml) UD] Dm Hydrobrom/Promethazine Hc 10 ml PO Q6H PRN 11/07/14 [Dextromethorphan W/Promethazine 15 mg/5 ml-6] Fluticasone Propionate [Flonase] 2 spray MANJIT DAILY 11/07/14 Gabapentin [Neurontin] 300 mg PO HS 11/07/14 Omeprazole 40 mg PO HS 11/07/14 SUMAtriptan succinate [Imitrex Tab] 100 mg PO PRN PRN 11/07/14 Topiramate [Topamax] 50 mg PO DAILY 11/07/14 Tramadol Hydrochloride [Tramadol] 25 mg PO TID 11/07/14 hydrOXYzine HCl [Atarax] 25 mg PO BID 11/07/14 hydrOXYzine HCl [Atarax] 50 mg PO HS 11/07/14 levoFLOXacin [Levaquin] 500 mg PO DAILY #7 tab 07/17/16 traMADol [Ultram] 50 mg PO Q6H PRN #10 tab 09/04/16 Methylprednisolone [Medrol Dose 4 mg PO DAILY #21 mg 10/04/16 Pack (21 tabs)] Prednisone 50 mg PO DAILY #4 tablet 01/06/17 - Allergies Allergies/Adverse Reactions: Allergies Allergy/AdvReac Type Severity Reaction Status Date / Time Beef Containing Products Allergy ANGIOEDEMA Verified 01/06/17 16:16 codeine Allergy URTICARIA Verified 01/06/17 16:16 fluconazole [From Diflucan] Allergy ITCHING Verified 01/06/17 16:16 gluten Allergy URTICARIA Verified 01/06/17 16:16 hydromorphone HCl Allergy ITCHING Verified 01/06/17 16:16 [From Dilaudid] iron Allergy ANGIOEDEMA Verified 01/06/17 16:16 peanut Allergy ANAPHYLAXIS Verified 01/06/17 16:16 PORK Allergy ANAPHYLAXIS Verified 01/06/17 16:16 seafood Allergy ANAPHYLAXIS Uncoded 01/06/17 16:16 wine Allergy ANGIOEDEMA Uncoded 01/06/17 16:16 Review of Systems ENT: Positive for: Other ([place] to throat and lips) Cardiovascular: Positive for: Light Headedness, Other (chest tightness) Respiratory: Positive for: Wheezing Gastrointestinal: Positive for: Nausea. Negative for: Vomiting Skin: Negative for: Rash - ECG ECG: Positive for: Interpreted By Me ECG Rhythm: Positive for: Normal QRS, Normal ST Segment, Sinus Rhythm O2 Sat by Pulse Oximetry: 98 (RA) Pulse Ox Interpretation: Normal Disposition - Clinical Impression Clinical Impression: Acute allergic reaction - Disposition Referrals: Alessandro Burgess MD [Staff Provider] - (FOLLOW UP WITH DR BURGESS AND YOUR PATROL GUARD WITHIN A WEEK) Disposition Time: 18:00 Condition: IMPROVED Prescriptions: Prednisone 50 mg PO DAILY #4 tablet Instructions: Food Allergy (ED) Forms: [facility] ED School/Work Excuse Medical Decision Making Medical Decision Making: Impression: Allergic Reaction Plan: * Benadryl 25 mg IV * Pepcid 40 mg IV * Methylprednisolone 125 mg IV 17:15 Patient feels slightly better but still has some chest tightness. Nebulizers ordered. Scribe Attestation: Documented by Eli Schulz, acting as a scribe for Xiomara Amin MD. Provider Scribe Attestation: All medical record entries made by the Scribe were at my direction and personally dictated by me. I have reviewed the chart and agree that the record accurately reflects my personal performance of the history, physical exam, medical decision making, and the department course for this patient. I have also personally directed, reviewed, and agree with the discharge instructions and disposition. * Reevaluation
[2017-01-06] MEDS ORDERED: Albuterol-Ipratrop 3 mg / 0.5 (3 ml) UD INH STA (17:26)
[2017-01-06 19:17] VITALS: BP 128/78; PULSE 78; RESP 19; TEMP 97.6
--- NOTE | 2017-01-07 09:11 | CARD ---
APPROVED REPORT EKG Measurement Heart [id number] <Conclusion> Normal sinus rhythm Normal ECG
== END 2017-01-06 19:18 | disposition home or self-care (01) ==
LOC: H.ER 16:06
DX: T78.40XA Allergy, unspecified, initial encounter (principal); R11.0 Nausea; D64.9 Anemia, unspecified
CPT/HCPCS: 93005; 94150; 94640; 96374; 96375; 99283; J1200; J2930

== ENCOUNTER 2017-01-16 14:50 | Emergency (ER) | payer OTHER ==
[2017-01-16 14:51] VITALS: BMI 33.2
[2017-01-16 15:06] VITALS: BP 129/85; PULSE 90; RESP 16; TEMP 98.9; O2SAT 100
--- NOTE | 2017-01-16 15:11 | ED PDOC ---
HPI: General Adult Time Seen by Provider: 01/16/17 15:09 Chief Complaint (Nursing): Cough, Cold, Congestion Chief Complaint (Provider): cough, wheezing History Per: Patient Additional Complaint(s): 36-year-old female with history of asthma presents to emergency department with chest congestion and tightness as well as wheezing that started yesterday. Patient recently completed course of Zithromax and a Medrol Dosepak but still has persisting symptoms. She denies fever or chills. She states cough is productive of green sputum. Denies recent travel. Past Medical History Reviewed: Historical Data, Nursing Documentation, Vital Signs Vital Signs: Last Vital Signs Temp 98.9 F 01/16/17 15:03 Pulse 90 01/16/17 15:03 Resp 16 01/16/17 15:03 BP 129/85 01/16/17 15:03 Pulse Ox 100 01/16/17 16:25 - Medical History PMH: Anemia, Asthma, Gastritis, GERD, Migraine, Rheumatoid Arthritis - Surgical History Surgical History: Cholecystectomy (2008) Other surgeries: ovarian cyst removal - Family History Family History: States: No Known Family Hx - Living Arrangements Living Arrangements: With Family - Social History Current smoker - smoking cessation education provided: No Alcohol: None Drugs: Denies - Home Medications Home Medications: Ambulatory Orders Medication Instructions Recorded Albuterol Sulfate [Ventolin Hfa] 2 puff IH Q6H PRN 01/18/14 Mometasone/Formoterol [Dulera 100 1 puff IH BID 01/18/14 Mcg/5 Mcg Inhaler] Montelukast [Singulair] 10 mg PO HS 01/18/14 Albuterol/Ipratropium [Duoneb 3 3 ml IH QID PRN 11/07/14 mg/0.5 mg (3 ml) UD] Dm Hydrobrom/Promethazine Hc 10 ml PO Q6H PRN 11/07/14 [Dextromethorphan W/Promethazine 15 mg/5 ml-6] Fluticasone Propionate [Flonase] 2 spray MANJIT DAILY 11/07/14 Gabapentin [Neurontin] 300 mg PO HS 11/07/14 Omeprazole 40 mg PO HS 11/07/14 SUMAtriptan succinate [Imitrex Tab] 100 mg PO PRN PRN 11/07/14 Topiramate [Topamax] 50 mg PO DAILY 11/07/14 Tramadol Hydrochloride [Tramadol] 25 mg PO TID 11/07/14 hydrOXYzine HCl [Atarax] 25 mg PO BID 11/07/14 hydrOXYzine HCl [Atarax] 50 mg PO HS 11/07/14 levoFLOXacin [Levaquin] 500 mg PO DAILY #7 tab 07/17/16 traMADol [Ultram] 50 mg PO Q6H PRN #10 tab 09/04/16 Methylprednisolone [Medrol Dose 4 mg PO DAILY #21 mg 10/04/16 Pack (21 tabs)] Prednisone 50 mg PO DAILY #4 tablet 01/06/17 Benzonatate 200 mg PO TID PRN #20 capsule 01/16/17 Prednisone 50 mg PO DAILY #5 tablet 01/16/17 - Allergies Allergies/Adverse Reactions: Allergies Allergy/AdvReac Type Severity Reaction Status Date / Time amoxicillin Allergy RASH Verified 01/16/17 15:03 Beef Containing Products Allergy ANGIOEDEMA Verified 01/16/17 15:03 codeine Allergy URTICARIA Verified 01/16/17 15:03 fluconazole [From Diflucan] Allergy ITCHING Verified 01/16/17 15:03 gluten Allergy URTICARIA Verified 01/16/17 15:03 hydromorphone HCl Allergy ITCHING Verified 01/16/17 15:03 [From Dilaudid] iron Allergy ANGIOEDEMA Verified 01/16/17 15:03 levofloxacin [From Levaquin] Allergy RASH Verified 01/16/17 15:03 peanut Allergy ANAPHYLAXIS Verified 01/16/17 15:03 PORK Allergy ANAPHYLAXIS Verified 01/16/17 15:03 seafood Allergy ANAPHYLAXIS Uncoded 01/16/17 15:03 wine Allergy ANGIOEDEMA Uncoded 01/16/17 15:03 Review of Systems ROS Statement: Except As Marked, All Systems Reviewed And Found Negative Constitutional: Negative for: Fever Cardiovascular: Positive for: Chest Pain (due to cough) Respiratory: Positive for: Cough, Shortness of Breath, Sputum (green), Wheezing. Negative for: Hemoptysis, SOB with Exertion Gastrointestinal: Negative for: Nausea, Vomiting Physical Exam - Reviewed Nursing Documentation Reviewed: Yes Vital Signs Reviewed: Yes - Physical Exam Appears: Positive for: Well, Non-toxic, No Acute Distress Skin: Negative for: Rash Eye Exam: Positive for: Normal appearance Cardiovascular/Chest: Positive for: Regular Rate, Rhythm Respiratory: Positive for: Decreased Breath Sounds, Other (Excessive coughing noted during exam). Negative for: Rales, Rhonchi, Wheezing Back: Negative for: L CVA Tenderness, R CVA Tenderness Extremity: Negative for: Pedal Edema Neurologic/Psych: Positive for: Alert, Oriented - Laboratory Results Urine POC: Negative - ECG O2 Sat by Pulse Oximetry: 100 Pulse Ox Interpretation: Normal - Other Rad CXR X-Ray: Interpreted by Me, Viewed By Me X-Ray Interpretation: no acute finding Nebulizer Treatments/Peak Flow - Duonebs Number of Bronchodilator Doses given?: 2 (duoneb) - Pre/Post Peak Flow Pre Treatment Peak Flow: 350 - Steroid Treatment Steroid: IV (IM 125 mg solumedrol) - Clinical Response Clinical Response: Improved Medical Decision Making Medical Decision Makin36 year old with asthma exacerbation Plan: CXR IM solumedrol Douneb x 2 Patient was much better after medications given. She is aware of chest x-ray results. Prescriptions given for Tessalon Perles and prednisone course. Patient was instructed to continue with DuoNeb nebs at home via nebulizer and to follow up tomorrow with primary doctor. Disposition - Clinical Impression Clinical Impression: Asthma exacerbation, Bronchospasm - Patient ED Disposition Is Patient to be Admitted: No Counseled Patient/Family Regarding: Studies Performed, Diagnosis, Need For Followup, Rx Given - Disposition Referrals: Alessandro Whelan MD [Family Provider] - Disposition: Routine/Home Disposition Time: 16:34 Condition: IMPROVED Additional Instructions: Continue with DuoNeb treatments at home. Take prescription meds as directed. Follow up tomorrow with primary doctor. Prescriptions: Benzonatate 200 mg PO TID PRN #20 capsule PRN Reason: Cough Prednisone 50 mg PO DAILY #5 tablet Instructions: Bronchospasm (ED), Asthma (ED) Forms: [employer] (Ivorian)
[2017-01-16] MEDS ORDERED: Albuterol-Ipratrop 3 mg / 0.5 (3 ml) UD INH STA (15:22)
[2017-01-16] MEDS ORDERED: Albuterol-Ipratrop 3 mg / 0.5 (3 ml) UD ONE (15:44)
--- NOTE | 2017-01-16 17:19 | RAD ---
HISTORY: cough COMPARISON: Comparison is made to 07/12/2016 TECHNIQUE: Chest PA and lateral FINDINGS: LUNGS: No active pulmonary disease. PLEURA: No significant pleural effusion identified. No pneumothorax apparent. CARDIOVASCULAR: Normal. OSSEOUS STRUCTURES: No significant abnormalities. VISUALIZED UPPER ABDOMEN: Normal. OTHER FINDINGS: None. IMPRESSION: No active disease.
== END 2017-01-16 16:41 | disposition home or self-care (01) ==
LOC: H.ER 14:50
DX: J45.901 Unspecified asthma with (acute) exacerbation (principal); J98.01 Acute bronchospasm; K21.9 Gastro-esophageal reflux disease without esophagitis; M06.9 Rheumatoid arthritis, unspecified
CPT/HCPCS: 71020; 81025; 94150; 94640; 96372; 99283; J2930